=== PATIENT | female | born 1940 | race Caucasian/White ===

== ENCOUNTER 2020-01-10 08:14 | Outpatient (CLI) | payer MEDICARE, SELFPAY ==
[2020-01-10 09:15] LABS: Alanine Aminotransferase 20 U/L (4-35); Albumin Level 3.9 g/dL (3.5-5.1); Alkaline Phosphatase 118 U/L (38-126); Aspartate Amino Transferase 23 U/L (14-36); Bilirubin,Total 0.3 mg/dL (0.2-1.3); Blood Urea Nitrogen 12 mg/dL (7-17); Calcium 9.2 mg/dL (8.4-10.2); Carbon Dioxide 26 mmol/L (22-30); Chloride 106 mmol/L (98-107); Cholesterol 156 mg/dL (0-200); Creatine Kinase 50 U/L (30-135); Estimated Glomerular Filt Rate 60; Glucose 156 mg/dL (65-105); HDL Direct 43 mg/dL; Potassium 4.2 mmol/L (3.4-5.0); Sodium 137 mmol/L (137-145); Triglycerides 173 mg/dL (<150)
[2020-01-10 09:26] LABS: LDL Cholesterol Direct 88 mg/dL
[2020-01-10 09:29] LABS: Hemoglobin A1C 8.6 % (<5.7)
== END 2020-01-10 08:15 | disposition home or self-care (01) ==
DX: E11.9 Type 2 diabetes mellitus without complications (principal); Z79.4 Long term (current) use of insulin
CPT/HCPCS: 36415; 80053; 80061; 82550; 83036

== ENCOUNTER 2020-02-13 08:39 | Outpatient (CLI) | payer MEDICARE, SELFPAY ==
--- NOTE | ~2020-02-13 | DEXA_ITS ---
Bone Density Report Name: Velma Garcia Age: 79 Sex: Female Ethnicity: White Date of : 1940 Indication: postmenopausal; height loss; prior fracture; cancer; hysterectomy; Referring Provider: NERY, KIP Bunch Study: Bone densitometry was performed. Exam Date: February 13, 2020 Accession number: [id number] Bone Density: Region BMD T-score Z-score Classification AP Spine (L1-L4) 1.262 2.0 4.7 Normal Femoral Neck (Left) 0.531 -2.9 -0.5 Osteoporosis Total Hip (Left) 0.756 -1.5 0.6 Osteopenia Total Hip Bilateral Avg 0.746 -1.6 0.5 Osteopenia Femoral Neck (Right) 0.554 -2.7 -0.3 Osteoporosis Total Hip (Right) 0.736 -1.7 0.4 Osteopenia World Health Organization criteria for BMD impression classify patients as: Normal (T-score at or above -1.0), Osteopenia (T-score between -1.0 and -2.5), or Osteoporosis (T-score at or below -2.5). 10-year Fracture Risk: FRAX not reported because: Some T-score for Spine Total or Hip Total or Femoral Neck at or below -2.5 Treated for osteoporosis Clinical Information Provided by Patient: Has had a low trauma fracture Is being treated for osteoporosis Has used the following medications: Evista (i.e. raloxifene), Vitamin D, Calcium Has the following medical conditions: Cancer, Hysterectomy Patient maximum height was 70 Menopause Age: 29 No regular weight bearing exercise Onset of menses at age 15 Number of children 2 Impression: The patient has established osteoporosis, based on the Left Femoral Neck T-score and the existence of a prior fracture. The patient has risk factors, including: previous fracture. Discussion: It is important to ask patients whether they are taking their medications and to encourage continued and appropriate compliance with their osteoporosis therapies to reduce fracture risk. It is also important to review their risk factors and encourage appropriate calcium and vitamin D intakes, exercise, fall prevention and other lifestyle measures. Follow-Up: Consider a repeat BMD and Vertebral Fracture Assessment (VFA) exam in 2 years or sooner if medically necessary, to reassess this patient's status. Reported by: [facility] on 02/13/2020 9:03:00 AM. Reviewed, dictated and finalized at location Abelardo RONQUILLO
== END 2020-02-13 08:40 | disposition home or self-care (01) ==
LOC: ANHIMG 08:41
PROVIDERS: PCP Internal Medicine; Visit Provider Internal Medicine
DX: Z78.0 Asymptomatic menopausal state (principal); M81.0 Age-related osteoporosis without current pathological fracture; M85.852 Other specified disorders of bone density and structure, left thigh; M85.851 Other specified disorders of bone density and structure, right thigh
CPT/HCPCS: 77080

== ENCOUNTER 2020-07-10 12:12 | Outpatient (NON) | payer MEDICARE, SELFPAY ==
[2020-07-10 23:24] LABS: SARS-CoV-2 RNA PCR Negative
== END 2020-07-10 12:13 ==
LOC: ANHCOVIDDT 12:13
PROVIDERS: Visit Provider Internal Medicine
DX: R09.89 Other specified symptoms and signs involving the circulatory and respiratory systems (principal); Z20.828 Contact with and (suspected) exposure to other viral communicable diseases
CPT/HCPCS: 87635; C9803; U0003

== ENCOUNTER 2020-07-26 08:50 | Outpatient (CLI) | payer MEDICARE, SELFPAY ==
[2020-07-26 09:43] LABS: Basophils Absolute Auto 0.1 K/mm3 (0.0-0.1); Basophils Percent Auto 0.8 % (0.2-1.2); Eosinophils Absolute Auto 0.1 K/mm3 (0-0.3); Eosinophils Percent Auto 1.6 % (0-4.4); Hematocrit 38.1 % (37.0-47.0); Immature Granulocyte Absolute 0.01 K/mm3 (0.00-0.031); Immature Granulocyte Percent A 0.2 % (0-0.5); Lymphocytes Percent Auto 40.5 % (18.3-44.2); Mean Corpuscular HGB Conc 34.1 g/dl (32-36); Mean Corpuscular Hemoglobin 31.1 pg (26-34); Mean Corpuscular Volume 91.1 fl (80-100); Mean Platelet Volume 9.7 fl (7.4-10.4); Monocytes Absolute Auto 0.5 K/mm3 (0.1-0.6); Monocytes Percent Auto 7.3 % (2.6-8.5); Neutrophils Absolute Auto 3.1 K/mm3 (1.3-6.7); Neutrophils Percent Auto 49.6 % (45.5-73.1); Platelet Count Result 273 k/mm3 (150-375); Red Blood Count 4.18 M/mm3 (4.2-5.4); Red Cell Distribution Width 12.9 % (11.5-14.5); White Blood Count 6.2 K/mm3 (4.5-10.0)
[2020-07-26 09:54] LABS: Add Urine Microscopic? YES; Appearance Urine Clear (Clear); Bacteria Urine 4+ /hpf; Bilirubin Urine Negative (Negative); Blood Urine Negative (Negative); Color Urine Yellow (Yellow); Glucose Urine UA 2+ mg/dL (Negative); Ketones Urine Negative (Negative); Leukocyte Esterase Ur 1+ LEU/UL (NEGATIVE); Mucus Urine Moderate /lpf; Nitrate Urine Positive (Negative); Protein Urine 1+ mg/dL (Negative); RBC Urine 0-2 /hpf (0-2); Specific Grav Ur 1.024 (1.001-1.035); Squamous Epithelial Cell Urine Many /hpf (Few); Urobilinogen Urine Negative mg/dL (<2.0)
[2020-07-26 09:56] LABS: Alanine Aminotransferase 15 U/L (4-35); Alkaline Phosphatase 99 U/L (38-126); Anion Gap 6 mmol/L (8-16); Aspartate Amino Transferase 19 U/L (14-36); Bilirubin,Total 0.4 mg/dL (0.2-1.3); Blood Urea Nitrogen 18 mg/dL (7-17); Calcium 10.1 mg/dL (8.4-10.2); Carbon Dioxide 25 mmol/L (22-30); Chloride 107 mmol/L (98-107); Cholesterol 164 mg/dL (0-200); Creatine Kinase 56 U/L (30-135); Estimated Glomerular Filt Rate 53; Glucose 200 mg/dL (65-105); HDL Direct 45 mg/dL; Potassium 4.2 mmol/L (3.4-5.0); Sodium 138 mmol/L (137-145); Triglycerides 208 mg/dL (<150); Uric Acid 6.3 mg/dL (2.5-7.5)
[2020-07-26 10:06] LABS: Creatinine Urine 198.2 mg/dL
[2020-07-26 10:07] LABS: LDL Cholesterol Direct 89 mg/dL
[2020-07-26 10:13] LABS: MALB Creatinine Ratio 7.7 mg/g (0-30); Microalbumin Urine Random 15.2 mg/L (0-16.7)
[2020-07-26 10:23] LABS: Vitamin D 25 Hydroxy 59.7 ng/mL
== END 2020-07-26 08:51 | disposition home or self-care (01) ==
PROVIDERS: PCP Internal Medicine; Visit Provider Internal Medicine
DX: E11.9 Type 2 diabetes mellitus without complications (principal); Z51.81 Encounter for therapeutic drug level monitoring; Z79.4 Long term (current) use of insulin; I10 Essential (primary) hypertension; E78.2 Mixed hyperlipidemia; I25.118 Atherosclerotic heart disease of native coronary artery with other forms of angina pectoris
CPT/HCPCS: 36415; 80053; 80061; 81001; 82043; 82306; 82550; 83036; 84443; 84550; 85025

== ENCOUNTER → 2020-08-11 14:23 | Outpatient (CLI) | payer MEDICARE, SELFPAY ==
--- NOTE | ~2020-08-11 | MM_ITS ---
EXAMINATION: MM diagnostic stewart BI w simeon HISTORY: History of left breast cancer TECHNIQUE: Craniocaudal, mediolateral, and mediolateral oblique 3-D tomosynthesis images of the breas ts were performed and synthetic 2-D images were generated. CAD analysis was submitted and interpreted . COMPARISON: 08/22/2019, 06/09/2018, 05/03/2017 BREAST PARENCHYMAL COMPOSITION: The breasts are almost entirely fatty. FINDINGS: Scattered benign-appearing calcifications are present. There are changes of interval lumpec luiza of the lower inner left breast. Stable lumpectomy changes are noted in the subareolar aspect of the left breast. There is no evidence of suspicious mass, calcification, or architectural distortion in either breast to suggest malignancy. IMPRESSION: 1. Changes of interval lumpectomy of the lower inner left breast without mammographic evidence of mal ignancy. 2. Recommend annual screening mammography while the patient remains in good health. BI-RADS Category 2: Benign finding(s). Reviewed, dictated and finalized at location A. ICAL CARE EDUCATOR IMPRESSION: 1. Changes of interval lumpectomy of the lower inner left breast without mammog raphic evidence of malignancy. 2. Recommend annual screening mammography while the patient remains in good hea lth. BI-RADS Category 2: Benign finding(s).
== END ==
DX: Z85.3 Personal history of malignant neoplasm of breast (principal)
CPT/HCPCS: 77062; 77066; G0279

== ENCOUNTER → 2020-09-03 09:35 | Outpatient (CLI) | payer MEDICARE, SELFPAY ==
--- NOTE | ~2020-09-03 | US_ITS ---
US breast RT limited INDICATION: Right breast mass TECHNIQUE: Dedicated Limited right breast ultrasound COMPARISON: No prior studies for comparison. FINDINGS: The right breast is composed of normal heterogeneous echotexture without focal solid or cys tic mass. IMPRESSION: 1: Normal right breast ultrasound. BI-RADS CATEGORY 1 - NEGATIVE Reviewed, dictated and finalized at location A. GENCY CREW SUPERVISOR
== END ==
PROVIDERS: PCP Internal Medicine; Visit Provider Surgery
DX: N63.11 Unspecified lump in the right breast, upper outer quadrant (principal)
CPT/HCPCS: 76642

== ENCOUNTER 2021-02-11 07:43 | Outpatient (CLI) | payer MEDICARE, SELFPAY ==
[2021-02-11 08:51] LABS: Basophils Absolute Auto 0.1 K/mm3 (0.0-0.1); Basophils Percent Auto 0.8 % (0.2-1.2); Eosinophils Absolute Auto 0.2 K/mm3 (0-0.3); Hematocrit 37.2 % (37.0-47.0); Hemoglobin 12.7 g/dL (12.0-15.0); Immature Granulocyte Absolute 0.01 K/mm3 (0.00-0.031); Immature Granulocyte Percent A 0.2 % (0-0.5); Lymphocytes Percent Auto 33.3 % (18.3-44.2); Mean Corpuscular HGB Conc 34.1 g/dl (32-36); Mean Corpuscular Hemoglobin 30.3 pg (26-34); Mean Corpuscular Volume 88.8 fl (80-100); Monocytes Absolute Auto 0.6 K/mm3 (0.1-0.6); Monocytes Percent Auto 9.2 % (2.6-8.5); Neutrophils Absolute Auto 3.2 K/mm3 (1.3-6.7); Neutrophils Percent Auto 53.5 % (45.5-73.1); Platelet Count Result 300 k/mm3 (150-375); Red Blood Count 4.19 M/mm3 (4.2-5.4); Red Cell Distribution Width 13.3 % (11.5-14.5)
[2021-02-11 08:51] LABS: Add Urine Microscopic? YES; Appearance Urine Cloudy (Clear); Bacteria Urine 1+ /hpf; Bilirubin Urine Negative (Negative); Color Urine Yellow (Yellow); Glucose Urine UA Negative (Negative); Ketones Urine Negative (Negative); Leukocyte Esterase Ur Trace LEU/UL (Negative); Mucus Urine Rare /lpf; Nitrate Urine Positive (Negative); Protein Urine Negative (Negative); RBC Urine 0-2 /hpf (0-2); Specific Grav Ur 1.018 (1.001-1.035); Squamous Epithelial Cell Urine Many /hpf (Few); Urobilinogen Urine Negative mg/dL (<2.0)
[2021-02-11 08:55] LABS: Blood Urine Negative (Negative)
[2021-02-11 08:59] LABS: Alanine Aminotransferase 20 U/L (4-35); Albumin Level 4.1 g/dL (3.5-5.1); Alkaline Phosphatase 100 U/L (38-126); Anion Gap 6 mmol/L (8-16); Aspartate Amino Transferase 28 U/L (14-36); Bilirubin,Total 0.6 mg/dL (0.2-1.3); Blood Urea Nitrogen 17 mg/dL (7-17); Calcium 10.1 mg/dL (8.4-10.2); Carbon Dioxide 28 mmol/L (22-30); Chloride 103 mmol/L (98-107); Cholesterol 177 mg/dL (0-200); Creatine Kinase 44 U/L (30-135); Estimated Glomerular Filt Rate 60; Glucose 155 mg/dL (65-105); HDL Direct 46 mg/dL; Potassium 4.4 mmol/L (3.4-5.0); Sodium 137 mmol/L (137-145); Triglycerides 170 mg/dL (<150); Uric Acid 6.4 mg/dL (2.5-7.5)
[2021-02-11 09:10] LABS: LDL Cholesterol Direct 83 mg/dL
[2021-02-11 09:24] LABS: Creatinine Urine 117.9 mg/dL
[2021-02-11 09:39] LABS: Vitamin D 25 Hydroxy 74.9 ng/mL
[2021-02-11 09:55] LABS: MALB Creatinine Ratio < 5.1 mg/g (0-30); Microalbumin Urine Random < 6.0 mg/L (0-16.7)
== END 2021-02-11 07:44 | disposition home or self-care (01) ==
PROVIDERS: PCP Internal Medicine; Visit Provider Internal Medicine
DX: E11.9 Type 2 diabetes mellitus without complications (principal); I10 Essential (primary) hypertension; Z79.4 Long term (current) use of insulin; K21.9 Gastro-esophageal reflux disease without esophagitis; E78.2 Mixed hyperlipidemia; R35.0 Frequency of micturition; M81.0 Age-related osteoporosis without current pathological fracture
CPT/HCPCS: 36415; 80053; 80061; 81001; 82043; 82306; 82550; 83036; 84443; 84550; 85025; 87077; 87086; 87088; 87186

== ENCOUNTER 2022-02-10 12:30 | Outpatient (RCR) | payer MEDICARE, SELFPAY ==
--- NOTE | 2021-12-17 07:59 | PTOPEVAL ---
PHYSICAL THERAPY INITIAL EVALUATION. Thank you for referring Velma Garcia to [facility] [place].? The patient is scheduled to be seen for therapy? 2x/week for 4 weeks. Please review, sign, date and return this plan of care VERO. I agree with and certify that the following plan of care is medically necessary. Referring Physician Date Attending Provider: Joey Richey Evaluation Information Diagnosis R hip fracture, ORIF Onset 10/22/21 Subjective Information Pt states she fell and broke Query Text:As Reported By Patient/ her hip in 4 places. She was Family at [facility] for 2 weeks. She also just completed 2 weeks of home health. Pt states she did not know until last week that she was able to put any weight on her leg. Pt states her grandson lifts the wheelchair in an out of her home. She has been dependent on the wheelchair and has not used the walker. She has started using the walker more in the last week. Pt states she is using the kitchen sink to help to clean herself. Pain Assessment Right Hip(s) Reported Pain Level 0 Greatest Pain Intensity 4 Lower Extremity Range of Motion Gross Lower Extremity Range of Motion L knee extension -6 Comments R knee extension -16 L hip flexion 120 R hip flexion 86 Lower Extremity Muscle Strength Testing Gross Lower Extremity Strength L hip flexion 4/5 R hip 3/5 L knee 4+/5 R knee 4/5 - unable to perform 1 SLR on the R - unable to maintain single limb stance - unable to tolerate R side lying Muscle Length Testing Left Hamstring Length -45 Right Hamstring Length -45 Balance Assessment Time Up Go (TUG) Timed Up and Go Test (TUG) (Seconds) 50 Assistive Devices Walker, Wheeled 5 Time Sit to Stand Time in Seconds 23 5 Time Sit to Stand Comments with use of UEs, unable to Query Text:Normative Data: If Greater perform without UE support Gait Assessment Gait Pattern Step-to Gait Gait Pattern Observed Decreased Stride Length - Left ,Decreased Stride Length - Britton
--- NOTE | 2021-12-25 14:19 | PCPTNOTE ---
Patient called & cancelled scheduled appointment this date due to not being able to make it today.
--- NOTE | 2022-01-11 14:29 | PTOPEVAL ---
PHYSICAL THERAPY PROGRESS REPORT. Thank you for referring Velma Garcia to [facility].? The patient is scheduled to be seen for therapy? 2x/week for 4weeks. Please review, sign, date and return this plan of care VERO. I agree with and certify that the following plan of care is medically necessary. Referring Physician Date Attending Provider: Joey Richey Evaluation Information Diagnosis R hip fracture, ORIF Onset 10/22/21 Subjective Information Pt states she thinks therapy Query Text:As Reported By Patient/ is going really well, she Family still has some concerns about her pain. She states her pain does not feel like it is getting better. She states she has to take Tylenol daily in order to sleep. Pt reminded that pain may increase slightly as function increases . Pt states she is now able to use the toilet regularly compared to a commode and depends when starting. Pt now uses the walker for home ambulation compared to a wheelchair for home mobility initially. Pain Assessment Self Report Pain Assessment Right Hip(s) Reported Pain Level 3 Greatest Pain Intensity 8 Lower Extremity Range of Motion Gross Lower Extremity Range of Motion L knee extension -6 Comments R knee extension -10 L hip flexion 120 R hip flexion 92 R hip extension -10 Lower Extremity Muscle Strength Testing Gross Lower Extremity Strength L hip flexion 4/5 R hip 3+/5 abdoulaye knee flexion/extension 4+/5 R knee 4/5 - able to perform 10 SLR on the R - unable to maintain single limb stance - unable to tolerate R side lying Balance Assessment Timed Up and Go Test (TUG) (Seconds) 22 Assistive Devices Walker, Wheeled Comments Initially 50s with wheeled walker 01/11/22: 22s with wheeled walker 5 Time Sit to Stand Time in Seconds 23 5 Time Sit to Stand Comments Initially: 23s with use of UEs Query Text:Normative Data: If Greater , unable to perform without UE Than 15 Seconds, 74% Increase Risk for support Recurrent Falls 01/11/22: 18s with use of UEs, unable to perform without UE
--- NOTE | 2022-01-20 15:37 | PCPTNOTE ---
Patient called & cancelled scheduled appointment this date due to being too tired to make it in today. Pt rescheduled appointment for 01/22/22 @ 10:15.
--- NOTE | 2022-01-27 12:54 | PCPTNOTE ---
Patient called & cancelled scheduled appointment this date due to can't make it today.
--- NOTE | 2022-01-29 10:45 | PCPTNOTE ---
Addendum entered by Isamar Saenz, TOOTH CLERK 01/29/22 11:22: Patient called back stating she fell this morning and the Dr wants her to rest with ice today. Original Note: Patient called & cancelled scheduled appointment this date due to not being able to make it.
--- NOTE | 2022-02-10 13:31 | PTOPEVAL ---
PHYSICAL THERAPY PROGRESS REPORT. Thank you for referring Velma Garcia to [facility].? The patient is scheduled to be seen for therapy? 2x/week for 4 weeks. Please review, sign, date and return this plan of care VERO. I agree with and certify that the following plan of care is medically necessary. Referring Physician Date Attending Provider: Joey Richey Assessment Status Progress Evaluation Information Diagnosis R hip fracture, ORIF Onset 10/22/21 Subjective Information Pt states she feels like she Query Text:As Reported By Patient/ is making progress but is Family still far from where she was. She states she is concerned about the amount of pain she is having. She states in the evening she is unable to get her lace up shoes off. She states in the last couple of days she has woken up about once an hour due to pain. Pt states her pain is increasing progressively. She states completing daily tasks at home are difficultly due to her strength and balance. Pain Assessment Self Report Pain Assessment Right Hip(s) Reported Pain Level 5 Greatest Pain Intensity 10 Lower Extremity Range of Motion Gross Lower Extremity Range of Motion L knee extension -6 Comments R knee extension -6 L hip flexion 120 R hip flexion 85 R hip extension -10 Lower Extremity Muscle Strength Testing General Lower Extremity Strength Gross Lower Extremity Strength L hip flexion 4+/5 R hip 4/5 R knee 4+/5 - able to perform 10 SLR on the R - unable to maintain single limb stance - unable to tolerate R side lying Balance Assessment Timed Up and Go Test (TUG) (Seconds) 22 Assistive Devices Walker, Wheeled Comments Initially 50s with wheeled walker 01/11/22: 22s with wheeled walker 02/10/22: 14s with wheeled walker 5 Time Sit to Stand 5 Time Sit to Stand Comments Initially: 23s with use of UEs Query Text:Normative Data: If Greater , unable to perform without UE Than 15 Seconds, 74% Increase Risk for support Recurrent Falls 01/11/22: 18s with use of UEs, unable to perform without UE support 02/10/22: 14s with ken
--- NOTE | 2022-02-16 15:00 | PCPTNOTE ---
Attending Provider: Joey Richey Patient:Velma Garcia Date of :1940 PHYSICAL THERAPY DISCHARGE SUMMARY. Patient called and cancelled her remaining appointments today. She states something is abnormal with her screw and her doctor requested her to cease therapy. Therefore she will be discharged at this time. Patient?s initial visit was on 12/16/2021 and she had a total of 14 visits. The goals have been partially met. Thank you for referring this patient to [facility]. Please review, sign, date and return this discharge summary VERO. I have been updated about the patient's current status and I agree with discharge from the above service at this time. Referring Physician Date
== END 2022-02-17 10:37 | disposition home or self-care (01) ==
LOC: ANHPT 12:30
PROVIDERS: PCP Internal Medicine
DX: Z47.89 Encounter for other orthopedic aftercare (principal)
CPT/HCPCS: 97110; 97112; 97116; 97140; 97161; 97530

== ENCOUNTER 2022-07-08 13:23 | Outpatient (CLI) | payer MEDICARE, SELFPAY ==
--- NOTE | ~2022-07-08 | DEXA_ITS ---
Bone Density Report Name: RM WILLIAMSON Age: 82 Sex: Female Ethnicity: White Date of : 1940 Indication: postmenopausal; screening for osteoporosis; parental hip fracture; height loss; prior fracture; hysterectomy; rheumatoid arthritis; Referring Provider: NERY, KIP Bunch Study: Bone densitometry was performed. Exam Date: July 08, 2022 Accession number: [id number] Bone Density: Region BMD T-score Z-score Classification AP Spine(L2, L3, L4) 1.290 1.9 4.8 Normal Femoral Neck (Left) 0.527 -2.9 -0.5 Osteoporosis Total Hip (Left) 0.642 -2.5 -0.2 Osteoporosis World Health Organization criteria for BMD impression classify patients as: Normal (T-score at or above -1.0), Osteopenia (T-score between -1.0 and -2.5), or Osteoporosis (T-score at or below -2.5). 10-year Fracture Risk: FRAX not reported because: Some T-score for Spine Total or Hip Total or Femoral Neck at or below -2.5 Prior hip or vertebral fracture Clinical Information Provided by Patient: Have had a previous hip or vertebral fracture Has had a low trauma fracture Parent has had a hip fracture Has rheumatoid arthritis Has used the following medications: Fosamax (i.e. alendronate), Vitamin D, Calcium Has the following medical conditions: Hysterectomy Patient maximum height was 70 Menopause Age: 29 Drinks caffeinated beverages Onset of menses at age 14 Number of children 2 Impression: The patient has established osteoporosis, based on the Left Femoral Neck T-score and the existence of a prior fracture. The patient has risk factors, including: parental hip fracture, previous fracture. Discussion: HIGH RISK OF FRACTURE. BONE DENSITY IS UNDESIRABLY LOW AT ONE OR MORE SKELETAL SITES, CONSISTENT WITH POSTMENOPAUSAL OSTEOPOROSIS. This patient's lowest T-score, in a patient who has previously fractured, meets the World Health Organization's (WHO) criteria for severe osteoporosis. In untreated patients, the risk of osteoporotic fracture increases approximately two-fold for each 1.0 SD decrease in T-score. Low bone density is not the only risk factor for fracture; also consider factors such as patient's age, frailty or poor health, risk of falling, risk of injury, previous osteoporotic fracture, family history of osteoporosis, cigarette smoking, low body weight, etc. Not everyone with low bone mineral density has osteoporosis; osteomalacia and other metabolic bone disorders should also be considered. Patients who have osteoporosis should be evaluated for specific diseases and conditions (secondary causes) that may cause or contribute to bone loss. The [place] [employer]ocrinologists (AACE) and National Osteoporosis Foundation (NOF) recommend pharmacologic intervention for all postmenopausal women with a previous hip or vertebral fracture and a T-score in this range. The
== END 2022-07-08 13:24 | disposition home or self-care (01) ==
PROVIDERS: PCP Internal Medicine; Visit Provider Internal Medicine
DX: Z78.0 Asymptomatic menopausal state (principal); Z87.81 Personal history of (healed) traumatic fracture; M81.0 Age-related osteoporosis without current pathological fracture
CPT/HCPCS: 77080

== ENCOUNTER 2022-08-05 13:30 | Outpatient (RCR) | payer MEDICARE, SELFPAY ==
--- NOTE | 2022-06-21 15:38 | PTOPEVAL1 ---
Assessment and note entered by Rboert Vasquez, PT Evaluation Information Assessment Status Evaluation Diagnosis R hip weakness post hardware removal Onset October 2021 Subjective Information Patient reports she has been feeling more confident with using her wheeled walker. She had a screw removed from her hardware and had to be off exercises for 6 weeks to let everything heal. She would like to be able to walk with a cane, but she doesn't feel strong enough to do it. Needs help going up and down stairs at [facility]. Reported Pain Level Pain Score 0: Self Report Assessment PT Clinical Summary Sultana is an 82 year old female coming into the clinic today for strengthening of the R hip and to progress from a wheeled walker to a straight cane . Patient demonstrates decreased strength in the R hip, decreased endurance, and balance. Skilled physical therapy should be able to help improve her functional mobility and progress her to a straight cane in by improving her endurance, balance, and hip strength. Plan of Care Interventions Electrical Stimulation,Gait Training,Hot Pack/Cold Pack,Manual Therapy,Neuro Re-education,Patient/ Caregiver Education,Therapeutic Activities, Therapeutic Exercise,Ultrasound PT Services Indicated Yes Treatment Frequency and 1-2x/wk for 6 weeks Duration These treatments will address the objective and functional deficits as defined above. The patient will be advanced safely and appropriately in order for the patient to progress towards his/her prior level of function. Additional exercises will be introduced and as well as a comprehensive home exercise program upon discharge, if needed, ?to ensure carryover of functional gains achieved in the clinic. This treatment plan has been reviewed and agreement upon by the patient.
--- NOTE | 2022-07-07 14:17 | PCPTNOTE ---
Patient called & cancelled scheduled appointment this date due to not feeling well.
--- NOTE | 2022-07-26 09:42 | PCPTNOTE ---
Patient called & cancelled scheduled appointment this date due to her being in the hospital.
--- NOTE | 2022-08-04 10:49 | PCPTNOTE ---
Patient left a message to be called back as she hurt her upper arm muscle while doing exercises. Advised her her options are to come here for her re-evaluation tomorrow and we can look at it or if more pressing she can call her doctor or go to the ER. Patient states she is going to try to come here tomorrow and have us look at it.
--- NOTE | 2022-08-05 16:55 | PTOPDC ---
Assessment and note entered by Robert Vasquez, PT Evaluation Information Assessment Status Discharge Diagnosis hip fx and repair October of 2021 Onset October 2021 Subjective Information Patient reports she feels good with her R hip, she knows she needs to look up when she is walking and that even though the RLE is strong she still babies it and puts more weight on the LLE. Also called yesterday complaining of R shoulder pain which was documented about on her treatment notes of 07/19/22 and 07/21/22 though neither mentions a specific incident. Patient would like us to look at the shoulder and also that we should not have to go through her insurance because it happened while she was here in the clinic. Informed the patient that she is welcome to talk to our director about any injury that she believes occurred here, and that we would be happy to see her for the shoulder after a doctor looks at it, but that if she came to be seen for her shoulder she would still be financially responsible for any services provided. Reported Pain Level Pain Score 0: Self Report Additional Pain Score Comments zero hip pain, R shoulder pain which she reports is better than 2 weeks ago. Assessment PT Clinical Summary Sultana is an 82 year old female coming into the clinic for weakness of the R hip. She has met all of her goals with the leg, but is no having complaints of R shoulder pain. She is okay with being discharged from skilled physical therapy at this time and knowing that she was given the advice to see her doctor about R shoulder pain and if they feel okay get a new script for R shoulder pain. Plan of Care PT Services Indicated No Treatment Frequency and discharge from skilled physical therapy. Duration
== END 2022-08-06 08:10 | disposition home or self-care (01) ==
LOC: ANHPT 13:30
PROVIDERS: PCP Internal Medicine
DX: R29.898 Other symptoms and signs involving the musculoskeletal system (principal); Z98.890 Other specified postprocedural states
CPT/HCPCS: 97014; 97110; 97112; 97116; 97161; 97530; G0283